=== PATIENT | female | born 1960 | race Asian ===

== ENCOUNTER 2022-08-20 10:39 | Day surgery (SDC) | payer OTHER ==
[~2022-08-20] VITALS: Ht 154.9 cm; Wt 57.6 kg
[2022-08-20] MEDS ORDERED: fentaNYL citrate 0.05 MG/ML VIAL ONE (12:30)
[2022-08-20] MEDS ORDERED: MIDAZOLAM 5 MG/5 ML VIAL ONE (12:31)
[2022-08-20] MEDS ORDERED: LIDOCAINE 2% 100 MG/5 ML UJET TP ONE (12:31)
[2022-08-20] MEDS ORDERED: fentaNYL citrate 0.05 MG/ML VIAL IVP ONE (16:05)
== END 2022-08-20 13:20 | disposition home or self-care (01) ==
LOC: MDS 10:39 → MMU 10:40 → MDS 13:20
PROVIDERS: ATTEND Internal Medicine Gastroenterology
DX: Z12.11 Encounter for screening for malignant neoplasm of colon (principal); K57.30 Diverticulosis of large intestine without perforation or abscess without bleeding; I10 Essential (primary) hypertension; Z79.899 Other long term (current) drug therapy
CPT/HCPCS: 45378; J3010; J2250